=== PATIENT | female | born 1970 | race Two or more races ===

== ENCOUNTER 2016-04-28 23:58 | Observation (INO) | payer BC ==
[2016-04-29] MEDS ORDERED: 0.9 % SODIUM CHLORIDE 1000ML 1,000 ML IV SCH (00:15)
--- NOTE | 2016-04-29 00:15 | Emergency Department Record ---
History of Present Illness - General Chief Complaint: Dizziness Stated Complaint: FELT LIKE GOING TO PASS OUT Time Seen by Provider: 04/29/16 00:11 Source: Patient, EMS Mode of Arrival: EMS Limitations: No limitations - History of Present Illness Initial Comments: 45 yo female presents to ED with a CC of pre-syncope while at work tonight x 2, relieved by sitting down. Patient reports that her work-place was very hot tonight, reports that she felt very fatigued tonight at work. Patient denies health problems at her baseline, and denies a history of previous symptoms. MD Complaint: Near syncope Onset/Timin -: Minutes(s) Timing: Sudden onset Description: Difficulty walking, Lightheadedness, Nausea History of Same: No Severity: Moderate Improves With: Rest Worsens With: Exertion Associated Symptoms: Weakness - Valery Coma Scale Eye Response: (4) Open spontaneously Motor Response: (6) Obeys commands Verbal Response: (5) Oriented Valery Total: 15 - Related Data Allergies Allergy/AdvReac Type Severity Reaction Status Date / Time Penicillins Allergy Intermediate DIARRHEA Verified 04/29/16 00:01 Sulfa (Sulfonamide Allergy Mild HYPERSENSIT Verified 04/29/16 00:01 Antibiotics) IVITY Travel Screening - Travel/Exposure Within Last 30 Days Have you traveled within the last 30 days?: No - Travel Symptoms Symptom Screening: None Review of Systems Constitutional: Reports: Malaise. Denies: Chills, Fever, Night sweats Eyes: Denies: Eye discharge, Eye pain, Photophobia ENT: Denies: Congestion, Ear pain, Epistaxis Respiratory: Denies: Cough, Dyspnea Cardiovascular: Denies: Chest pain, Dyspnea on exertion Endocrine: Denies: Fatigue, Heat or cold intolerance Gastrointestinal: Reports: Nausea. Denies: Abdominal pain, Constipation, Vomiting Genitourinary: Denies: Dysuria, Frequency, Hematuria, Incontinence Musculoskeletal: Denies: Arthralgia, Back pain, Gout, Joint swelling Skin: Denies: Bruising, Change in color Neurological: Reports: Weakness. Denies: Abnormal gait, Confusion, Headache, Seizure Psychiatric: Denies: Anxiety Hematological/Lymphatic: Denies: Anemia, Blood Clots Past Medical History - SOCIAL HISTORY Smoking Status: Current every day smoker - RESPIRATORY Hx Respiratory Disorders: No - CARDIOVASCULAR Hx Cardio Disorders: No - NEURO Hx Neuro Disorders: No - GI Hx GI Disorders: No - Hx Genitourinary Disorders: Yes Hx UTI: Yes - ENDOCRINE Hx Endocrine Disorders: No - MUSCULOSKELETAL Hx Musculoskeletal Disorders: Yes Hx Arthritis: Yes Hx Back Injury: Yes Comment:: R rotator cuff injury - PSYCH Hx Psych Problems: Yes Hx Anxiety: Yes - HEMATOLOGY/ONCOLOGY Hx Hematology/Oncology Disorders: Yes Hx Anemia: Yes Hx Blood Transfusions: Yes Comment:: during surgery Family Medical History Any Significant Family History?: Yes Hx Cancer: Grandparents Hx Diabetes: Grandparents Physical Exam - General General Appearance: Alert, Oriented x3, Cooperative, No acute distress, Other ( patient reports feeling much better when supine) Limitations: No limitations - Head Head exam: Atraumatic, Normocephalic, Normal inspection Head exam detail: negative: Abrasion, Contusion, Dupont's sign, General tenderness, Hematoma, Laceration - Eye Eye exam: Normal appearance. negative: Conjunctival injection, Periorbital swelling, Periorbital tenderness, Scleral icterus - ENT Ear exam: negative: Auricular hematoma, Auricular trauma Nasal Exam: negative: Active bleeding, Discharge, Dried blood, Foreign body Mouth exam: negative: Drooling, Laceration, Muffled voice, Tongue elevation - Neck Neck exam: Normal inspection. negative: Meningismus, Tenderness - Respiratory Respiratory exam: Normal lung sounds bilaterally. negative: Rales, Respiratory distress, Rhonchi - Cardiovascular Cardiovascular Exam: Regular rate, Normal rhythm, Normal heart sounds - GI/Abdominal GI/Abdominal exam: Soft. negative: Rebound, Rigid, Tenderness - Rectal Rectal exam: Deferred - exam: Deferred - Extremities Extremities exam: Normal inspection. negative: Calf tenderness, Pedal edema, Tenderness - Back Back exam: Reports: Normal inspection. Denies: CVA tenderness (R), CVA tenderness (L) - Neurological Neurological exam: Alert, Oriented X3. negative: Motor sensory deficit - Psychiatric Psychiatric exam: Normal affect, Normal mood - Skin Skin exam: Normal color. negative: Abrasion Type of lesion: negative: abrasion Course Vital Signs 04/29/16 00:04 Temperature 97.5 F L Pulse Rate 74 Respiratory 24 Rate Blood Pressure 113/67 Pulse Ox 100 - Reevaluation(s) Reevaluation #1: 04/29/16 00:26 EKG: NSR 71 Normal axis, normal intervals No acute ST-T wave changes Reevaluation #2: 04/29/16 00:59 Labs reviewed, Hgb 5.1, HCT 20. WBC and platelets are normal. Patient reports a history of anemia, denies previous transfusion. Patient takes Iron for her symptoms intermittently. 2 Units of PRBCs ordered to transfuse. Medical Decision Making - Lab Data Result diagrams: 04/29/16 00:10 04/29/16 00:10 Disposition Disposition: Admit Clinical Impression: Severe anemia Disposition: Still a Patient at [facility] [place] Decision to Admit: Admit from ER Decision to Admit Date: 04/29/16 Decision to Admit Time: : Condition: (2) Stable Forms: Patient Portal Access Time of Disposition: :29
[2016-04-29 00:43] LABS: HEMATOCRIT 20.7 % (35.0-47.0); MEAN CELL VOLUME 65.9 fl (81-97); MEAN CORPUSCULAR HEMOGLOBIN 16.2 pg (27-33); MEAN CORPUSCULAR HGB CONC 24.6 g/dl (32-36); MEAN PLATELET VOLUME 9.7 fl (7.4-10.4); PLATELET COUNT 382 K/uL (130-400); RED BLOOD COUNT 3.14 M/uL (3.80-5.40); WHITE BLOOD COUNT W/O DIFF 6.9 K/uL (4.2-12.2)
[2016-04-29 00:50] LABS: HEMOGLOBIN 5.1 gm/dl (11.6-16.0)
[2016-04-29] MEDS ORDERED: ONDANSETRON HCL IV 4 MG/2 ML VIAL IVP ONE (00:51)
[2016-04-29 01:16] LABS: ALB/GLOB RATIO 1.4 (1.1-1.8); ALKALINE PHOSPHATASE 50 U/L (38-126); ALT/SGPT 30 U/L (9-52); ANION GAP 10.6 (7-16); AST/SGOT 21 U/L (14-36); BILIRUBIN,TOTAL 0.31 mg/dL (0.2-1.3); BLOOD UREA NITROGEN 17 mg/dL (7-17); CARBON DIOXIDE 23.4 mmol/L (22-30); CREATININE 0.8 mg/dL (0.52-1.04); EST GLOMERULAR FILTRATION RATE > 60 ml/min; GLUCOSE,RANDOM 114 mg/dL (70-110); TOTAL PROTEIN 6.9 gm/dL (6.3-8.2)
[2016-04-29 01:30] LABS: HYPOCHROMIA 3+
[2016-04-29 01:57] LABS: ABO GROUP B; ANTIBODY SCREEN NEGATIVE (NEGATIVE); IMMED. SPIN CROSSMATCH COMPATIBLE; RH TYPE POSITIVE
[2016-04-29 01:58] LABS: IMMED. SPIN CROSSMATCH COMPATIBLE
[2016-04-29] MEDS ORDERED: 0.9 % SODIUM CHLORIDE 1000ML 1,000 ML IV PRN (02:23)
[2016-04-29 02:49] LABS: URINE APPEARANCE CLEAR; URINE BILIRUBIN NEGATIVE (NEGATIVE); URINE BLOOD LARGE (NEGATIVE); URINE COLOR BROWN; URINE GLUCOSE (UA) NEGATIVE (NEGATIVE); URINE KETONE NEGATIVE (NEGATIVE); URINE LEUKOCYTE ESTERASE NEGATIVE (NEGATIVE); URINE NITRITE NEGATIVE (NEGATIVE); URINE UROBILINOGEN 0.2 E.U./dL (0.20 - 1.00)
[2016-04-29 02:58] LABS: AMPHETAMINE SCREEN URINE NOT DETECTED; BARBITURATE SCREEN URINE NOT DETECTED; BENZODIAZEPINE SCREEN URINE NOT DETECTED; COCAINE SCREEN URINE NOT DETECTED; METHADONE SCREEN URINE NOT DETECTED; METHAMPHETAMINE SCREEN NOT DETECTED; OPIATE SCREEN URINE NOT DETECTED; OXYCODONE SCREEN URINE NOT DETECTED; PHENCYCLIDINE SCREEN URINE NOT DETECTED; PROPOXYPHENE SCREEN URINE NOT DETECTED; THC SCREEN URINE NOT DETECTED; TRICYCLIC ANTIDEPRESSANT SCRN NOT DETECTED
[2016-04-29 03:02] LABS: URINE RBC >50 (NONE SEEN); URINE WBC 0 - 2 (0-2/hpf)
[2016-04-29 03:03] LABS: URINE AMORPHOUS SEDIMENT 1+; URINE MUCUS LIGHT
[2016-04-29] MEDS ORDERED: IBUPROFEN 400 MG TABLET PO PRN (03:14)
[2016-04-29 07:01] LABS: BASO % 0.3 % (0-6); GRAN % 78.7 % (47-80); HEMATOCRIT 22.6 % (35.0-47.0); LYMPH % 16.3 % (16-45); MEAN CELL VOLUME 69.5 fl (81-97); MEAN PLATELET VOLUME 9.3 fl (7.4-10.4); MONO % 3.7 % (0-9); PLATELET COUNT 338 K/uL (130-400); RED BLOOD COUNT 3.25 M/uL (3.80-5.40); RED CELL DISTRIBUTION WIDTH 22.3 % (11.5-14.5); WHITE BLOOD COUNT W/O DIFF 7.3 K/uL (4.2-12.2)
[2016-04-29 07:04] LABS: MEAN CORPUSCULAR HEMOGLOBIN 18.7 pg (27-33)
[2016-04-29 07:10] LABS: HEMOGLOBIN 6.1 gm/dl (11.6-16.0)
[2016-04-29] MEDS: ACETAMINOPHEN 500 MG TABLET PO PRN ×2 (08:46→20:42)
[2016-04-29 12:00] LABS: HEMATOCRIT 25.4 % (35.0-47.0); HEMOGLOBIN 7.2 gm/dl (11.6-16.0)
[2016-04-29] MEDS: SUCRALFATE 1 G/10 ML UD PO SCH ×2 (12:13→18:11)
[2016-04-29] MEDS: PANTOPRAZOLE SODIUM IV 40 MG VIAL IVP SCH (12:13)
--- NOTE | 2016-04-29 13:28 | History & Physical ---
History of Present Illness - Date of Service Date of Service for History & Physical: 04/29/16 - History of Present Illness Admitting Diagnosis: Severe Anemia History of Present Illness: 45yo female with CC of light-headedness and shortness of breath. She has a history of anxiety, alcohol abuse, arthritis and is a current smoker. Patient presented to the ED after feeling very light-headed and short of breath while at work at the [employer] plant. She said every time she would stand up she felt like she was going to pass out. While in the Ed, patient was found to have hgb of 5.5 HCt was 20. WBC and platelets wnl. Patient was admitted for severe anemia and started on 2 units of pRBC transfusion. 04/29/16- Patient had 2 units transfused over the night and is feeling better. Says she is not very short of breath when just resting in bed, but still feeling dizzy when she sits up and starts talking. Says she is getting winded ambulating to the bathroom and back. Reports loose, dark stool about 3 days prior. Thought it was something she had eaten that caused the change. She has been taking mobic for her shoulder and back pain. She admits that sometimes she takes additional ibuprofen as well. has had some intermittent heart burn leading up to this as well. PCP: Radha Travel Screening - Travel/Exposure Within Last 30 Days Have you traveled within the last 30 days?: No - Travel/Exposure Within Last Year Have you traveled outside the [place] in the last year?: No - Additonal Travel Details Have you been exposed to anyone with a communicable illness?: No - Travel Symptoms Symptom Screening: None Review of Systems Constitutional: Reports: Malaise. Denies: Chills, Fever, Night sweats Eyes: Denies: Eye discharge, Eye pain, Photophobia ENT: Denies: Congestion, Ear pain, Epistaxis Respiratory: Denies: Cough, Dyspnea Cardiovascular: Reports: Dyspnea on exertion. Denies: Chest pain Endocrine: Reports: Fatigue. Denies: Heat or cold intolerance Gastrointestinal: Reports: Other (black stools). Denies: Abdominal pain, Constipation, Vomiting Genitourinary: Denies: Dysuria, Frequency, Hematuria, Incontinence Musculoskeletal: Denies: Arthralgia, Back pain, Gout, Joint swelling Skin: Denies: Bruising, Change in color Neurological: Reports: Weakness. Denies: Abnormal gait, Confusion, Headache, Seizure Psychiatric: Denies: Anxiety Hematological/Lymphatic: Denies: Anemia, Blood Clots Past Medical History - SOCIAL HISTORY Smoking Status: Current every day smoker Alcohol Use: None Drug Use: None - RESPIRATORY Hx Respiratory Disorders: No - CARDIOVASCULAR Hx Cardio Disorders: No - NEURO Hx Neuro Disorders: No - GI Hx GI Disorders: No - Hx Genitourinary Disorders: Yes Hx UTI: Yes - ENDOCRINE Hx Endocrine Disorders: No - MUSCULOSKELETAL Hx Musculoskeletal Disorders: Yes Hx Arthritis: Yes Hx Back Injury: Yes Comment:: R rotator cuff injury - PSYCH Hx Psych Problems: Yes Hx Anxiety: Yes - HEMATOLOGY/ONCOLOGY Hx Hematology/Oncology Disorders: Yes Hx Anemia: Yes Hx Blood Transfusions: Yes Comment:: during surgery Family Medical History Any Significant Family History?: Yes Hx Cancer: Grandparents Hx Diabetes: Grandparents H&P Meds/Allergies - Allergies Allergies: Allergies Allergy/AdvReac Type Severity Reaction Status Date / Time Penicillins Allergy Intermediate DIARRHEA Verified 04/29/16 00:01 Sulfa (Sulfonamide Allergy Mild HYPERSENSIT Verified 04/29/16 00:01 Antibiotics) IVITY - Active Medications Active Medications: Current Medications Acetaminophen (Tylenol 500mg Tab) 1,000 mg PO Q6H PRN PRN Reason: PAIN/TEMP Last Admin: 04/29/16 08:46 Dose: 1,000 mg Sodium Chloride () 1,000 mls @ 15 mls/hr IV .Q24H PRN PRN Reason: LARGE VOLUME IV Pantoprazole Sodium (Protonix Iv) 40 mg IVP DAILY [facility] Last Admin: 04/29/16 12:13 Dose: 40 mg Sucralfate (Carafate) 1 g PO TIDAC [facility] Last Admin: 04/29/16 12:13 Dose: 1 g Physical Exam - Vital Signs Vital Signs: Vital Signs - Last 24 Hrs Temp Pulse Resp BP Pulse Ox 04/29/16 10:23 98.4 F 76 18 118/55 100 04/29/16 09:00 16 04/29/16 02:30 71 18 04/29/16 02:23 97.6 F 71 18 110/60 100 - General General Appearance: Alert, Oriented x3, Cooperative, No acute distress Limitations: No limitations - Head Head exam: Atraumatic, Normocephalic, Normal inspection Head exam detail: negative: Abrasion, Contusion, Dupnot's sign, General tenderness, Hematoma, Laceration - Eye Eye exam: Normal appearance. negative: Conjunctival injection, Periorbital swelling, Periorbital tenderness, Scleral icterus - ENT Ear exam: negative: Auricular hematoma, Auricular trauma Nasal Exam: negative: Active bleeding, Discharge, Dried blood, Foreign body Mouth exam: negative: Drooling, Laceration, Muffled voice, Tongue elevation - Neck Neck exam: Normal inspection. negative: Meningismus, Tenderness - Respiratory Respiratory exam: Normal lung sounds bilaterally. negative: Rales, Respiratory distress, Rhonchi - Cardiovascular Cardiovascular Exam: Regular rate, Normal rhythm, Systolic murmur (likely from anemia) Peripheral Pulses: 2+: Radial (R), Radial (L), Dorsalis Pedis (R), Dorsalis Pedis (L) - GI/Abdominal GI/Abdominal exam: Soft. negative: Rebound, Rigid, Tenderness - Rectal Rectal exam: Deferred - exam: Deferred - Extremities Extremities exam: Normal inspection. negative: Calf tenderness, Pedal edema, Tenderness - Back Back exam: Reports: Normal inspection. Denies: CVA tenderness (R), CVA tenderness (L) - Neurological Neurological exam: Alert, Oriented X3. negative: Motor sensory deficit - Psychiatric Psychiatric exam: Normal affect, Normal mood - Skin Skin exam: Normal color. negative: Abrasion Type of lesion: negative: abrasion Results - Labs Result Diagrams: 04/30/16 06:20 04/29/16 00:10 Labs Last 24 Hours: Laboratory Results - last 24 hr 04/29/16 04/29/16 04/29/16 02:35 02:35 06:37 WBC 7.3 RBC 3.25 L Hgb 6.1 L* Hct 22.6 L MCV 69.5 L MCH 18.7 L MCHC 27.0 L RDW 22.3 H Plt Count 338 MPV 9.3 Gran % 78.7 Lymphocytes % 16.3 Monocytes % 3.7 Eosinophils % 1.0 Basophils % 0.3 Urine Color Brown H Urine Appearance Clear Urine pH 6.0 Ur Specific [place] 1.025 Urine Protein 30 mg/dl H Urine Glucose (UA) Negative Urine Ketones Negative Urine Blood Large H Urine Nitrite Negative Urine Bilirubin Negative Urine Urobilinogen 0.2 Ur Leukocyte Esterase Negative Urine RBC >50 Urine WBC 0 - 2 Ur Epithelial Cells 3 - 6 Amorphous Sediment 1+ Urine Mucus Light Urine HCG, Qual Cancelled Stool Occult Blood Urine Opiates Screen Not detected Ur Oxycodone Screen Not detected Urine Methadone Screen Not detected Ur Propoxyphene Screen Not detected Ur Barbituates Screen Not detected Ur Tricyclics Screen Not detected Ur Phencyclidine Scrn Not detected Ur Amphetamine Screen Not detected U Methamphetamines Scrn Not detected U Benzodiazepines Scrn Not detected Urine Cocaine Screen Not detected Urine Cannabis Screen Not detected 04/29/16 04/29/16 07:45 11:43 WBC RBC Hgb 7.2 L Hct 25.4 L MCV MCH MCHC RDW Plt Count MPV Gran % Lymphocytes % Monocytes % Eosinophils % Basophils % Urine Color Urine Appearance Urine pH Ur Specific [place] Urine Protein Urine Glucose (UA) Urine Ketones Urine Blood Urine Nitrite Urine Bilirubin Urine Urobilinogen Ur Leukocyte Esterase Urine RBC Urine WBC Ur Epithelial Cells Amorphous Sediment Urine Mucus Urine HCG, Qual Stool Occult Blood Negative Urine Opiates Screen Ur Oxycodone Screen Urine Methadone Screen Ur Propoxyphene Screen Ur Barbituates Screen Ur Tricyclics Screen Ur Phencyclidine Scrn Ur Amphetamine Screen U Methamphetamines Scrn U Benzodiazepines Scrn Urine Cocaine Screen Urine Cannabis Screen VTE H&P Assessment - Risk for VTE Risk for VTE: Yes Risk Level: Low Risk Assessment Date: 04/29/16 Risk Assessment Time: 13:00 VTE Orders Placed or Will Be Placed: No VTE Reason for No Prophylaxis: Contraindicated (hgb 5.5) Plan - Detailed Diagnosis and Plan (1) Severe anemia Current Visit: Yes Status: Acute Base Code: D64.9 - ANEMIA, UNSPECIFIED Comment: 04/29/16 -hgb of 5.5 improved to 7.2 following transfusion of 2 units pRBC. symptomatically improved but still feeling SOB with exertion and light- headed when sitting up. Suspect GI bleed 2/2 NSAID use. -start protonix 40mg IV -start carafate 1gm PO QID -hold all NSAIDs -transfuse one more unit since still symptomatic -vitals q8H -repeat labs 1hr post transfusion and again in the am -will need outpatient GI follow up since GI is not here until of this week. (2) DVT prophylaxis Current Visit: Yes Status: Acute Base Code: AZC2020 - Comment: 04/29/16- patient is low risk for dvt. Lovenox contraindicated with suspected acute GI bleed and hgb fo 5.5 (3) Full code status Current Visit: Yes Status: Acute Base Code: Z78.9 - OTHER SPECIFIED HEALTH STATUS Comment: 04/29/16- patient is full code
[2016-04-29 19:11] LABS: IMMED. SPIN CROSSMATCH COMPATIBLE
[2016-04-29 23:27] LABS: HEMATOCRIT 27.5 % (35.0-47.0); HEMOGLOBIN 7.8 gm/dl (11.6-16.0)
[2016-04-30 06:51] LABS: BASO % 0.7 % (0-6); GRAN % 63.9 % (47-80); HEMATOCRIT 28.3 % (35.0-47.0); HEMOGLOBIN 8.1 gm/dl (11.6-16.0); LYMPH % 24.8 % (16-45); MEAN CELL VOLUME 71.8 fl (81-97); MEAN CORPUSCULAR HGB CONC 28.6 g/dl (32-36); MEAN PLATELET VOLUME 9.9 fl (7.4-10.4); MONO % 7.6 % (0-9); PLATELET COUNT 350 K/uL (130-400); RED BLOOD COUNT 3.94 M/uL (3.80-5.40); RED CELL DISTRIBUTION WIDTH 22.1 % (11.5-14.5); WHITE BLOOD COUNT W/O DIFF 5.4 K/uL (4.2-12.2)
[2016-04-30 06:52] LABS: MEAN CORPUSCULAR HEMOGLOBIN 20.5 pg (27-33)
--- NOTE | 2016-04-30 08:08 | Discharge Summary ---
Providers Discharge Summary Date: 04/30/16 Date of admission: 04/29/16 02:13 Expected Date of Discharge: 04/30/16 Attending physician: AURORA SANTOS Primary care physician: AURORA SANTOS Consults: Consult Orders 05/02/16 08:04 Consult NOW Consulting Provider: AURORA SANTOS Physician Instructions: make appt with [facility] Reason For Exam: Gi bleed Physical Exam - Vital Signs Vital Signs: Vital Signs - Last 24 Hrs Temp Pulse Resp BP Pulse Ox 04/29/16 22:02 97.6 F 74 18 123/69 99 04/29/16 21:00 74 18 04/29/16 18:00 97.8 F 77 18 108/58 100 04/29/16 10:23 98.4 F 76 18 118/55 100 04/29/16 09:00 16 - General General Appearance: Alert, Oriented x3, Cooperative, No acute distress, Other ( patient reports feeling much better when supine) Limitations: No limitations - Head Head exam: Atraumatic, Normocephalic, Normal inspection Head exam detail: negative: Abrasion, Contusion, Dupont's sign, General tenderness, Hematoma, Laceration - Eye Eye exam: Normal appearance. negative: Conjunctival injection, Periorbital swelling, Periorbital tenderness, Scleral icterus - ENT Ear exam: negative: Auricular hematoma, Auricular trauma Nasal Exam: negative: Active bleeding, Discharge, Dried blood, Foreign body Mouth exam: negative: Drooling, Laceration, Muffled voice, Tongue elevation - Neck Neck exam: Normal inspection. negative: Meningismus, Tenderness - Respiratory Respiratory exam: Normal lung sounds bilaterally. negative: Rales, Respiratory distress, Rhonchi - Cardiovascular Cardiovascular Exam: Regular rate, Normal rhythm, Normal heart sounds - GI/Abdominal GI/Abdominal exam: Soft. negative: Rebound, Rigid, Tenderness - Rectal Rectal exam: Deferred - exam: Deferred - Extremities Extremities exam: Normal inspection. negative: Calf tenderness, Pedal edema, Tenderness - Back Back exam: Reports: Normal inspection. Denies: CVA tenderness (R), CVA tenderness (L) - Neurological Neurological exam: Alert, Oriented X3. negative: Motor sensory deficit - Psychiatric Psychiatric exam: Normal affect, Normal mood - Skin Skin exam: Normal color. negative: Abrasion Type of lesion: negative: abrasion Hospitalization - Hospitalization Admission Diagnosis: Severe Anemia - Problem List/Discharge Diagnosis (1) Severe anemia Plan: Laboratory Tests 04/29/16 04/29/16 04/29/16 06:37 11:43 23:24 Hgb 6.1 L* 7.2 L 7.8 L 04/30/16 06:20 Hgb 8.1 L 04/30/16 08:06 Current Visit: Yes Status: Acute Base Code: D64.9 - ANEMIA, UNSPECIFIED Comment: 04/29/16 -hgb of 5.5 improved to 7.2 following transfusion of 2 units pRBC. symptomatically improved but still feeling SOB with exertion and light- headed when sitting up. Suspect GI bleed 2/2 NSAID use. Prescribed short term ultram. WIll do consult for pain managment and pain cream as outpatient. Will do order for imaging of shoulder at time when ready to get surgery (not able to take time off work right now) -start protonix 40mg IV -start carafate 1gm PO QID -hold all NSAIDs -transfuse one more unit since still symptomatic -vitals q8H -repeat labs 1hr post transfusion and again in the am -will need outpatient GI follow up since GI is not here until of this week. - Hospitalization Course Disposition: Home, Self-Care Abnormal Labs: Abnormal Lab Results 04/29/16 04/29/16 04/29/16 Range/Units 02:35 06:37 11:43 RBC 3.25 L (3.80-5.40) M/uL Hgb 6.1 L* 7.2 L (11.6-16.0) gm/dl Hct 22.6 L 25.4 L (35.0-47.0) % MCV 69.5 L (81-97) fl MCH 18.7 L (27-33) pg MCHC 27.0 L (32-36) g/dl RDW 22.3 H (11.5-14.5) % Urine Color Brown H Urine Protein 30 mg/dl H (NEGATIVE) Urine Blood Large H (NEGATIVE) 04/29/16 04/30/16 Range/Units 23:24 06:20 RBC (3.80-5.40) M/uL Hgb 7.8 L 8.1 L (11.6-16.0) gm/dl Hct 27.5 L 28.3 L (35.0-47.0) % MCV 71.8 L (81-97) fl MCH 20.5 L (27-33) pg MCHC 28.6 L (32-36) g/dl RDW 22.1 H (11.5-14.5) % Urine Color Urine Protein (NEGATIVE) Urine Blood (NEGATIVE) Condition at Discharge: (2) Stable Discharge Medications - Discharge Medications Home Medications: Ambulatory Orders Omeprazole 40 mg PO DAILY #30 cap. 04/30/16 [Last Taken Unknown] Tramadol HCl/Acetaminophen [Tramadol-Acetaminophn 37.5-325] 1 each PO Q6HR #60 tablet 04/30/16 [Last Taken Unknown] Discharge Plan - Discharge Instructions Activity at Discharge: Increase Activity as Tolerated Diet at Discharge: Advance to Usual Diet Additional Instructions: 2 Activity: Increase Activity as Tolerated 2 Diet: Advance to Usual Diet 2 Consults: [] 2 Follow Up: []DR VILLAFUERTE 05/13/2016 AT 3PM 2 Dressing/Wound Care: (Type) (Change) 2 Additional: []
[2016-04-30] MEDS: PANTOPRAZOLE SODIUM IV 40 MG VIAL IVP SCH (10:32)
[2016-04-30] MEDS: SUCRALFATE 1 G/10 ML UD PO SCH ×2 (11:04→12:31)
[2016-04-30] MEDS ORDERED: IRON SUCROSE COMPLEX 500 MG in 0.9 % SODIUM CHLORIDE 250ML 250 ML IVPB ONE (11:15)
[2016-04-30 16:42] LABS: BASO % 0.4 % (0-6); GRAN % 68.8 % (47-80); HEMATOCRIT 29.5 % (35.0-47.0); HEMOGLOBIN 8.3 gm/dl (11.6-16.0); LYMPH % 21.3 % (16-45); MEAN CELL VOLUME 72.5 fl (81-97); MEAN CORPUSCULAR HGB CONC 28.1 g/dl (32-36); MEAN PLATELET VOLUME 9.6 fl (7.4-10.4); MONO % 6.5 % (0-9); PLATELET COUNT 363 K/uL (130-400); RED BLOOD COUNT 4.07 M/uL (3.80-5.40); RED CELL DISTRIBUTION WIDTH 22.8 % (11.5-14.5); WHITE BLOOD COUNT W/O DIFF 7.9 K/uL (4.2-12.2)
[2016-04-30 16:43] LABS: MEAN CORPUSCULAR HEMOGLOBIN 20.3 pg (27-33)
== END 2016-04-30 17:25 | disposition home or self-care (01) ==
LOC: ER 23:58 → INTOOBSV 04-29 02:13 → MEDSURG 04-29 02:13
PROVIDERS: ADMIT Family Medicine; ATTEND Family Medicine
DX: D50.0 Iron deficiency anemia secondary to blood loss (chronic) (principal); Z79.1 Long term (current) use of non-steroidal anti-inflammatories (NSAID); Z79.899 Other long term (current) drug therapy
CPT/HCPCS: 36430; 80053; 80305; 81001; 82272; 85014; 85018; 85025; 85027; 86850; 86900; 86901; 93005; 93010; 96361; 96374; 99217; 99220; 99285; C9113; J2405; J7030; J7050

== ENCOUNTER 2019-03-27 20:18 | Observation (INO) | payer MEDICAID, OTHER ==
[2019-03-27] MEDS ORDERED: 0.9 % SODIUM CHLORIDE 1,000 ML BAG IV ONE (21:02)
[2019-03-27 21:10] LABS: ABSOLUTE NEUTROPHIL COUNT 4.91; BASO % 0.1 % (0-6); EOS % 1.8 % (0-6); HEMATOCRIT 27.4 % (35.0-47.0); HEMOGLOBIN 7.7 gm/dl (11.6-16.0); LYMPH % 17.8 % (16-45); MEAN CELL VOLUME 76.8 fl (81-97); MEAN CORPUSCULAR HEMOGLOBIN 21.5 pg (27-33); MEAN CORPUSCULAR HGB CONC 28.1 g/dl (32-36); MONO % 7.3 % (0-9); PLATELET COUNT 368 K/uL (130-400); RED BLOOD COUNT 3.57 M/uL (3.80-5.40); WHITE BLOOD COUNT W/O DIFF 6.7 K/uL (4.2-12.2)
[2019-03-27 21:18] LABS: BLOOD UREA NITROGEN 12 mg/dL (6-20); CREATININE 0.6 mg/dL (0.5-0.9); EST GLOMERULAR FILTRATION RATE > 60 mL/min
[2019-03-27 21:19] LABS: TOTAL PROTEIN 7.2 g/dL (6.6-8.7)
[2019-03-27 21:21] LABS: GLUCOSE,RANDOM 102 mg/dL (74-109)
[2019-03-27 21:24] LABS: ALBUMIN 4.3 g/dL (4.0-5.0); ALKALINE PHOSPHATASE 75 U/L (35-104); ALT/SGPT 8 U/L (<33); AST/SGOT 14 U/L (10.0-35.0)
[2019-03-27 21:26] LABS: BILIRUBIN,DIRECT < 0.2 mg/dL (0-0.3)
--- NOTE | 2019-03-27 22:35 | Emergency Department Record ---
History of Present Illness - General Chief Complaint: Dizziness Stated Complaint: DIZZY Time Seen by Provider: 03/27/19 20:40 Source: Patient Mode of Arrival: EMS Limitations: No limitations - History of Present Illness Initial Comments: pt was brought in by ems for near syncope x 2 today. she feels she might be more anemic. she has not been taking her iron for 2 wks. she has a hx of anemia in the past and has had transfusions and iron. she has heavy menses. she has not seen a incident engineer. she is lightheaded and has been diaphoretic MD Complaint: Dizziness, Near syncope -: Hour(s) Timing: Intermittent, Waxing/waning Description: Lightheadedness, Other History of Same: Yes History of Trauma: No Severity: Mild Improves With: Rest Worsens With: Movement, Position, Exertion Associated Symptoms: Weakness - Valery Coma Scale Eye Response: (4) Open spontaneously Motor Response: (6) Obeys commands Verbal Response: (5) Oriented Valery Total: 15 - Symptoms of Stroke Symptoms of stroke: Dizziness - Related Data Allergies Allergy/AdvReac Type Severity Reaction Status Date / Time Penicillins Allergy Intermediate DIARRHEA Unverified 02/05/19 15:48 Sulfa (Sulfonamide Allergy Mild HYPERSENSIT Unverified 02/05/19 15:48 Antibiotics) IVITY Travel Screening - Travel/Exposure Within Last 30 Days Have you traveled within the last 30 days?: No - Travel Symptoms Symptom Screening: Weakness Review of Systems Reviewed: No additional complaints except as noted below Constitutional: Reports: As per HPI. Denies: Chills, Fever, Malaise, Night sweats, Weakness, Weight change Eyes: Reports: As per HPI. Denies: Eye discharge, Eye pain, Photophobia, Vision change ENT: Reports: As per HPI. Denies: Congestion, Dental pain, Ear pain, Epistaxis, Hearing loss, Throat pain Respiratory: Reports: As per HPI. Denies: Cough, Dyspnea, Hemoptysis, Stridor, Wheezes Cardiovascular: Reports: As per HPI. Denies: Arrhythmia, Chest pain, Dyspnea on exertion, Edema, Murmurs, Orthopnea, Palpitations, Paroxysmal nocturnal dyspnea, Rheumatic Fever, Syncope Endocrine: Reports: As per HPI. Denies: Fatigue, Heat or cold intolerance, Polydipsia, Polyuria Gastrointestinal: Reports: As per HPI. Denies: Abdominal pain, Constipation, Diarrhea, Hematemesis, Hematochezia, Melena, Nausea, Vomiting Genitourinary: Reports: As per HPI. Denies: Abnormal menses, Discharge, Dyspareunia, Dysuria, Frequency, Hematuria, Incontinence, Retention, Urgency Musculoskeletal: Reports: As per HPI. Denies: Arthralgia, Back pain, Gout, Joint swelling, Myalgia, Neck pain Skin: Reports: As per HPI. Denies: Bruising, Change in color, Change in hair/nails, Lesions, Pruritus, Rash Neurological: Reports: As per HPI. Denies: Abnormal gait, Confusion, Headache, Numbness, Paresthesias, Seizure, Tingling, Tremors, Vertigo, Weakness Psychiatric: Reports: As per HPI. Denies: Anxiety, Auditory hallucinations, Depression, Homicidal thoughts, Suicidal thoughts, Visual hallucinations Hematological/Lymphatic: Reports: As per HPI. Denies: Anemia, Blood Clots, Easy bleeding, Easy bruising, Swollen glands Past Medical History - SOCIAL HISTORY Smoking Status: Current every day smoker Alcohol Use: Occasional Drug Use: None - RESPIRATORY Hx Respiratory Disorders: No - CARDIOVASCULAR Hx Cardio Disorders: No - NEURO Hx Neuro Disorders: No - GI Hx GI Disorders: No - Hx Genitourinary Disorders: Yes Hx UTI: Yes Comment:: menorrhagia - ENDOCRINE Hx Endocrine Disorders: No - MUSCULOSKELETAL Hx Musculoskeletal Disorders: Yes Hx Arthritis: Yes Hx Back Injury: Yes Comment:: R rotator cuff injury - PSYCH Hx Psych Problems: Yes Hx Anxiety: Yes - HEMATOLOGY/ONCOLOGY Hx Hematology/Oncology Disorders: Yes Hx Anemia: Yes Hx Blood Transfusions: Yes Comment:: during surgery Family Medical History Any Significant Family History?: Yes Hx Cancer: Grandparents Hx Diabetes: Grandparents Physical Exam - General General Appearance: Alert, Oriented x3, Cooperative, Mild distress - Head Head exam: Normal inspection - Eye Eye exam: Normal appearance, PERRL, EOMI Pupils: Normal accommodation - ENT ENT exam: Normal exam, Mucous membranes moist, Normal external ear exam, Normal orophraynx Ear exam: Normal external inspection. negative: External canal tenderness Nasal Exam: Normal inspection. negative: Discharge, Sinus tenderness Mouth exam: Normal external inspection, Tongue normal Teeth exam: Normal inspection. negative: Dental caries Throat exam: Normal inspection. negative: Tonsillar erythema, Tonsillar exudate - Neck Neck exam: Normal inspection, Full ROM. negative: Tenderness - Respiratory Respiratory exam: Normal lung sounds bilaterally. negative: Respiratory distress - Cardiovascular Cardiovascular Exam: Regular rate, Normal rhythm, Normal heart sounds - GI/Abdominal GI/Abdominal exam: Soft, Normal bowel sounds. negative: Tenderness - Rectal Rectal exam: Deferred - exam: Deferred - Extremities Extremities exam: Normal inspection, Full ROM, Normal capillary refill. negative: Tenderness - Back Back exam: Reports: Normal inspection, Full ROM. Denies: Muscle spasm, Rash noted, Tenderness - Neurological Neurological exam: Alert, CN II-XII intact, Normal gait, Oriented X3 - Psychiatric Psychiatric exam: Normal affect, Normal mood - Skin Skin exam: Dry, Intact, Pallor, Warm Course Vital Signs 03/27/19 03/27/19 20:22 20:47 Temperature 97.9 F Pulse Rate 84 Pulse Rate [ 71 Bilateral] Respiratory 18 18 Rate Blood Pressure 147/102 Blood Pressure 128/91 [Left Arm] Pulse Ox 100 100 - Reevaluation(s) Reevaluation #1: 03/27/19 22:36 pts orthostats are positive Medical Decision Making - Lab Data Result diagrams: 03/27/19 19:50 03/27/19 19:50 Lab Results 03/27/19 03/27/19 Range/Units 19:50 19:50 WBC 6.7 (4.2-12.2) K/uL RBC 3.57 L (3.80-5.40) M/uL Hgb 7.7 L (11.6-16.0) gm/dl Hct 27.4 L (35.0-47.0) % MCV 76.8 L (81-97) fl MCH 21.5 L (27-33) pg MCHC 28.1 L (32-36) g/dl RDW 16.0 H (11.5-14.5) % Plt Count 368 (130-400) K/uL MPV 10.0 (7.4-10.4) fl Gran % 73.0 (47-80) % Lymphocytes % 17.8 (16-45) % Monocytes % 7.3 (0-9) % Eosinophils % 1.8 (0-6) % Basophils % 0.1 (0-6) % Absolute Neutrophils 4.91 Sodium 140 (136-145) mmol/L Potassium 3.6 (3.4-4.5) mmol/L Chloride 100 (98-107) mmol/L Carbon Dioxide 27.0 (22-29) mmol/L Anion Gap 13.0 (7-16) BUN 12 (6-20) mg/dL Creatinine 0.6 (0.5-0.9) mg/dL Estimated GFR > 60 mL/min Random Glucose 102 (74-109) mg/dL Calcium 9.0 (8.6-10.0) mg/dL Total Bilirubin 0.20 (0.2-1.0) mg/dL Direct Bilirubin < 0.2 (0-0.3) mg/dL AST 14 (10.0-35.0) U/L ALT 8 (<33) U/L Alkaline Phosphatase 75 (35-104) U/L Total Protein 7.2 (6.6-8.7) g/dL Albumin 4.3 (4.0-5.0) g/dL Disposition Disposition: Admit Clinical Impression: Near syncope Anemia Qualifiers: Anemia type: iron deficiency Iron deficiency anemia type: chronic blood loss Qualified Code(s): D50.0 - Iron deficiency anemia secondary to blood loss (chronic) Disposition: Still a Patient at [facility] Decision to Admit: Admit from ER Decision to Admit Date: 03/27/19 Decision to Admit Time: 22:39 Quality - Quality Measures Quality Measures: N/A - Blood Pressure Screening Does Patient Have Any of the Following: No Blood Pressure Classification: Hypertensive Reading Systolic Measurement: 147 Diastolic Measurement: 102 Screening for High Blood Pressure: < First Hypertensive BP, F/U Documented > [G8950] First Hypertensive Follow-up Interventions: Follow-up with rescreen GT 1 day and LT 4 weeks.
[2019-03-27 22:52] LABS: URINE APPEARANCE CLEAR; URINE BILIRUBIN NEGATIVE (NEGATIVE); URINE BLOOD NEGATIVE (NEGATIVE); URINE COLOR YELLOW; URINE GLUCOSE (UA) NEGATIVE (NEGATIVE); URINE KETONE TRACE (NEGATIVE); URINE LEUKOCYTE ESTERASE NEGATIVE (NEGATIVE); URINE NITRITE NEGATIVE (NEGATIVE); URINE PROTEIN NEGATIVE (NEGATIVE); URINE UROBILINOGEN 0.2 E.U./dL (0.20 - 1.00)
[2019-03-27 23:09] LABS: ABO GROUP B; ANTIBODY SCREEN NEGATIVE (NEGATIVE); RH TYPE POSITIVE
[2019-03-27] MEDS ORDERED: ACETAMINOPHEN 500 MG TABLET PO PRN (23:19)
[2019-03-27 23:39] LABS: IMMED. SPIN CROSSMATCH COMPATIBLE
[2019-03-28 02:47] LABS: IMMED. SPIN CROSSMATCH COMPATIBLE
[2019-03-28] MEDS ORDERED: DIPHENHYDRAMINE HCL 25 MG CAPSULE PO PRN (03:23)
[2019-03-28 06:51] LABS: HEMATOCRIT 31.7 % (35.0-47.0); HEMOGLOBIN 9.4 gm/dl (11.6-16.0)
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
--- NOTE | 2019-03-28 09:33 | Discharge Summary ---
Providers Discharge Summary Date: 03/28/19 Date of admission: 03/27/19 22:47 Expected Date of Discharge: 03/28/19 Attending physician: Alfonzo Julian Primary care physician: RAMONA IVEY Physical Exam - Vital Signs Vital Signs: Vital Signs - Last 24 Hrs Temp Pulse Pulse Pulse Pulse Resp BP 03/28/19 09:00 98.9 F 80 82 18 03/28/19 05:13 98.0 F 71 18 03/28/19 01:19 98.1 F 68 18 03/27/19 23:19 97.8 F 74 18 03/27/19 22:56 70 18 03/27/19 20:47 71 18 03/27/19 20:22 97.9 F 84 18 147/102 BP BP Pulse Ox 03/28/19 09:00 126/62 98 03/28/19 05:13 141/81 97 03/28/19 01:19 147/85 97 03/27/19 23:19 134/87 96 03/27/19 22:56 138/74 100 03/27/19 20:47 128/91 100 03/27/19 20:22 100 - General General Appearance: Alert, Oriented x3, Cooperative, Mild distress Limitations: No limitations - Head Head exam: Normal inspection - Eye Eye exam: Normal appearance, PERRL, EOMI Pupils: Normal accommodation - ENT ENT exam: Normal exam, Mucous membranes moist, Normal external ear exam, Normal orophraynx Ear exam: Normal external inspection. negative: External canal tenderness Nasal Exam: Normal inspection. negative: Discharge, Sinus tenderness Mouth exam: Normal external inspection, Tongue normal Teeth exam: Normal inspection. negative: Dental caries Throat exam: Normal inspection. negative: Tonsillar erythema, Tonsillar exudate - Neck Neck exam: Normal inspection, Full ROM. negative: Tenderness - Respiratory Respiratory exam: Normal lung sounds bilaterally. negative: Respiratory distress - Cardiovascular Cardiovascular Exam: Regular rate, Normal rhythm, Normal heart sounds - GI/Abdominal GI/Abdominal exam: Soft, Normal bowel sounds. negative: Tenderness - Rectal Rectal exam: Heme (-) stool (Lab stated nothing on the hemoccult test but I put mucous on the slide and it was brown and it was neg no blue color), Normal inspection - exam: Deferred - Extremities Extremities exam: Normal inspection, Full ROM, Normal capillary refill. negative: Tenderness - Back Back exam: Reports: Normal inspection, Full ROM. Denies: Muscle spasm, Rash noted, Tenderness - Neurological Neurological exam: Alert, CN II-XII intact, Normal gait, Oriented X3 - Psychiatric Psychiatric exam: Normal affect, Normal mood - Skin Skin exam: Dry, Intact, Pallor, Warm Hospitalization - Hospitalization Admission Diagnosis: near syncope, anemia - Problem List/Discharge Diagnosis (1) DUB (dysfunctional uterine bleeding) Current Visit: Yes Status: Acute Base Code: N93.8 - OTHER SPECIFIED ABNORMAL UTERINE AND VAGINAL BLEEDING (2) Near syncope Current Visit: Yes Status: Acute Base Code: R55 - SYNCOPE AND COLLAPSE (3) Severe anemia Current Visit: No Status: Acute Base Code: D64.9 - ANEMIA, UNSPECIFIED Comment: 04/29/16 -hgb of 5.5 improved to 7.2 following transfusion of 2 units pRBC. symptomatically improved but still feeling SOB with exertion and light- headed when sitting up. Suspect GI bleed 2/2 NSAID use. Prescribed short term ultram. WIll do consult for pain managment and pain cream as outpatient. Will do order for imaging of shoulder at time when ready to get surgery (not able to take time off work right now) -start protonix 40mg IV -start carafate 1gm PO QID -hold all NSAIDs -transfuse one more unit since still symptomatic -vitals q8H -repeat labs 1hr post transfusion and again in the am -will need outpatient GI follow up since GI is not here until of this week. - Disposition transfuse and send home if stable - Hospitalization Course Procedures: Cardiology Procedures 03/27/19 20:26 EKG NOW Abnormal Labs: Abnormal Lab Results 03/27/19 03/27/19 03/28/19 Range/Units 19:50 22:40 06:25 RBC 3.57 L (3.80-5.40) M/uL Hgb 7.7 L 9.4 L (11.6-16.0) gm/dl Hct 27.4 L 31.7 L (35.0-47.0) % MCV 76.8 L (81-97) fl MCH 21.5 L (27-33) pg MCHC 28.1 L (32-36) g/dl RDW 16.0 H (11.5-14.5) % Urine Ketones Trace H (NEGATIVE) VTE Discharge VTE Reason For No Overlap Therapy: Not Indicated Discharge Medications - Discharge Medications Prescriptions: Ferrous Sulfate [Iron] 325 mg PO BID #60 tablet Home Medications: Ambulatory Orders Iron 65 mg PO BID tab 12/03/16 [Last Taken Unknown] Acetaminophen [Tylenol 500Mg Tab] 1,000 mg PO Q6H PRN tablet 03/28/19 [Last Taken Unknown] Ferrous Sulfate [Iron] 325 mg PO BID #60 tablet 03/28/19 [Last Taken Unknown] Discharge Plan - Discharge Instructions Activity at Discharge: Increase Activity as Tolerated Diet at Discharge: Regular Diet Additional Instructions: follow up with Dr Ivey in 5 days outpatient consult with [employer] Dr Seals restart iron therapy also take vit c 1000 mg with the iron OTC Quality Measures - Quality Measures Quality Measures: Documentation of Current Medications in Medical Record, Screening for High Blood Pressure and F/U Documented - Current Medications Quality Measure: Measure #130: Documentation of Current Medications Documentation of Current Medications: <Current Medications Documented/Reviewed> [G8427] - Blood Pressure Screening Quality Measure: Screening for High Blood Pressure and Follow-Up Documented Does Patient Have Any of the Following: No Blood Pressure Classification: Hypertensive Reading Systolic Measurement: 147 Diastolic Measurement: 102 Screening for High Blood Pressure: < Pre-Hypertensive BP, F/U Documented > [G8950] Pre-Hypertensive Follow-up Interventions: Referral to alternative/primary care provider. - Elder Abuse Suspicion Index EASI Reference Information: Marni SWIFT, Doris C, Sasha Benitez, Lissette Moore.Development and validation of a tool to assist physicians identification of elder abuse: The Elder Abuse Suspicion Index (EASI ). Journal of Elder Abuse and Neglect, 2008; 20 (3): 276-300.
[2019-03-28] MEDS ORDERED: FERROUS SULFATE 325 MG TAB PO SCH (10:00)
[2019-03-28] MEDS ORDERED: TRAMADOL HCL PO SCH (10:00)
[2019-03-28] MEDS ORDERED: ACETAMINOPHEN PO SCH (10:00)
[2019-03-28] MEDS ORDERED: DEXTROAMPHETAMINE PO SCH (10:00)
[2019-03-28] MEDS ORDERED: AMPHETAMINE PO SCH (10:00)
[2019-03-28] MEDS ORDERED: DIPHENHYDRAMINE HCL 25 MG CAPSULE PO SCH (22:00)
== END 2019-03-28 12:45 | disposition home or self-care (01) ==
LOC: ER 20:18 → MEDSURG 22:47
PROVIDERS: ADMIT Emergency Medicine; ATTEND Emergency Medicine
DX: D50.0 Iron deficiency anemia secondary to blood loss (chronic) (principal); R55 Syncope and collapse; N92.0 Excessive and frequent menstruation with regular cycle; N93.8 Other specified abnormal uterine and vaginal bleeding; M19.90 Unspecified osteoarthritis, unspecified site; F17.210 Nicotine dependence, cigarettes, uncomplicated
CPT/HCPCS: 36430; 80048; 80076; 81003; 85014; 85018; 85025; 86850; 86900; 86901; 93005; 93010; 99220; 99285; J7030